=== PATIENT | female | born 1950 | race Caucasian/White ===

== ENCOUNTER 2025-01-09 13:01 | Emergency (ER) | payer MEDICARE, SELFPAY ==
[2025-01-09 13:10] VITALS: BP 115/67
[2025-01-09 13:29] LABS: % Basophils 0.8 % (0-2); % Eosinophils 2.1 % (0-6); % Immature Granulocytes 0.2 % (0-0.5); % Lymphocytes 15.5 % (20.5-51.1); % Monocytes 8.2 % (1.7-9.3); % Neutrophils 73.2 % (42.2-75.2); Absolute Basophils 0.1 10^3/uL (0-0.2); Absolute Eosinophils 0.2 10^3/uL (0-0.7); Absolute Lymphocytes 1.6 10^3/uL (1.2-3.4); Absolute Monocytes 0.8 10^3/uL (0.1-0.6); Absolute Neutrophils 7.4 10^3/uL (1.4-6.5); Hematocrit 39.7 % (37.0-47.0); Hemoglobin 13.4 g/dL (12.0-16.0); Mean Corp Hgb Conc. 33.8 g/dL (33.0-37.0); Mean Corpuscular Hgb 31.2 pg (27.0-31.0); Mean Corpuscular Volume 92.5 fL (81.0-99.0); Mean Platelet Volume 9.5 fL (7.4-10.4); Nucleated Red Blood Cells % 0 %; Platelet Count 183 10^3/uL (130-400); Red Blood Cell Count 4.29 10^6/uL (4.20-5.40); Red Cell Dist. Width 13.1 % (11.5-14.5); White Blood Cell Count 10.1 10^3/uL (4.8-10.8)
[2025-01-09 13:57] LABS: ALT (SGPT) 15 U/L (0-35); AST (SGOT) 23 U/L (14-36); Albumin 4.4 g/dl (3.5-5.0); Alkaline Phosphatase 49 U/L (38-126); Blood Urea Nitrogen 10 mg/dl (7-17); Calcium 9.2 mg/dl (8.4-10.2); Carbon Dioxide 24 mmol/L (22-30); Chloride 107 mmol/L (98-107); Glucose 102 mg/dl (70-99); Potassium 5.3 mmol/L (3.5-5.1); Sodium 136 mmol/L (135-145); Total Bilirubin 0.8 mg/dl (0.2-1.3); Total Protein 7.2 g/dl (6.3-8.2); eGFR > 60.00
--- NOTE | 2025-01-09 16:26 | ED.GENMED ---
History of Present Illness
General
Chief Complaint: Facial Problem
Source: patient
Exam Limitations: none
Time Seen by Provider: 01/09/25 15:55
Nursing documentation reviewed up to this point in time: agreed with
History of Present Illness
History of Present Illness:
The patient is a 74-year-old female presenting with swelling on the right side of the face, specifically the right side of chin and anterior lower jaw. The patient attributes the swelling to possibly biting the inside of the lip. The swelling began
approximately two days ago after she bit the inside of her cheek. The patient denies fever, chills, nausea, vomiting, or pain during swallowing. The pain is reported at a 5 out of 10 on the pain scale. There has been no drainage noted, and the
symptoms have remained constant without worsening.
Past History
Past History
ED Past Medical History: Hypercholesterolemia and Hypothyroidism
ED Past Surgical History: Gynecological and Orthopedic
Social History
Tobacco: Non-smoker
Alcohol: None
Personal:
Living: with family
Review of Systems
Review of Systems
Allergies reviewed?: Yes
All Other Systems: ROS reviewed and negative except as documented in HPI and ROS
Constitutional: Denies fever or chills
EENT: Reports mouth pain (swelling at site of bite inner right cheek)
Skin: Reports other (redness, local swelling lower right jaw/chin)
Phy Exam
Physical Exam
Physical Exam:
GENERAL: No acute distress. A&Ox3.
CONSTITUTIONAL: Afebrile.
EYES: clear, conjunctivae normal
ENMT: moist mucus membranes, Pharynx nl. No trismus. Tender, red,
RESPIRATORY: Regular respirations, nonlabored, lungs clear.
CARDIOVASCULAR: Regular rate and rhythm, no murmurs, no rubs.
GI: Soft, nontender, normal BS
MUSCULOSKELETAL: Moves with ease. Well perfused.
SKIN: Warm, dry, pink
PSYCH: Normal mood and affect. Well kept, interactive and appropriate
NEUROLOGIC: Awake, alert and oriented. No focal neurological deficits
Course
Orders/Labs/Results
Orders:
Orders
01/09/25 13:18
CBC/With Diff [Complete Blood Count/With Diff] Urgent
CMP [Comprehensive Metabolic Panel] Urgent
Abnormal Lab Results
01/09/25
13:18
MCH 31.2 H pg
(27.0-31.0)
Absolute Neuts (auto) 7.4 H 10^3/uL
(1.4-6.5)
Absolute Monos (auto) 0.8 H 10^3/uL
(0.1-0.6)
Lymphocytes % 15.5 L %
(20.5-51.1)
Potassium 5.3 H mmol/L
(3.5-5.1)
Glucose 102 H mg/dl
(70-99)
01/09/25 13:18
01/09/25 13:18
Vital Signs
Initial and Last Documented VS:
Initial Vital Signs
Pulse Resp BP Pulse Ox
70 18 115/67 98
01/09/25 13:10 01/09/25 13:10 01/09/25 13:10 01/09/25 13:10
Last Documented Vital Signs
Pulse Resp BP Pulse Ox
70 18 115/67 98
01/09/25 13:10 01/09/25 13:10 01/09/25 13:10 01/09/25 16:27
MDM/Problems Addressed
Differential Diagnosis Includes:
The Differential Diagnosis includes, in no particular order and is not limited to:
1. Traumatic injury to the lip/cheek mucosa
2. Dental abscess
3. Salivary gland infection
4. Cellulitis
MDM/Problems Addressed:
The patient is a 74-year-old female presenting with swelling on the right side of the face, specifically the right side of chin and anterior lower jaw. The patient attributes the swelling to possibly biting the inside of the lip. The swelling began
approximately two days ago after she bit the inside of her cheek. The patient denies fever, chills, nausea, vomiting, or pain during swallowing. The pain is reported at a 5 out of 10 on the pain scale. There has been no drainage noted, and the
symptoms have remained constant without worsening.
Cellulitis is mild
CBC, CMP normal
Plan:
Prescribe an antibiotic, to be sent to the patients pharmacy. Recommend continuation of ibuprofen or acetaminophen for pain management. Advise rinsing with a solution of hydrogen peroxide and water, two to three times daily x 3 days. Instruct the
patient to return if symptoms worsen, (PCP in [place], staying here for summer), otherwise follow up with the primary care physician.
*Pulse Oximetry
SaO2: 98
Oxygen Mode of Delivery: Room air
Patient hypoxic: not evaluated
*Critical Care Note
Total Time (30-74mins, 75-104mins- exclusive of procedures): Not Applicable
ED Attending Note
-
Portions of this chart may have been created with voice recognition software.� Occasional wrong word or��sound alike� substitutions may have occurred due to the inherent limitations of voice recognition software.
Discharge Plan
Departure
Patient Disposition: Home (Routine Discharge)
Date of Disposition: 01/09/25
Time of Disposition: 16:21
Patient with high blood pressure during this ER visit?: No
Condition: Good
Discharge Problem:
Cellulitis of face
Instructions: Cellulitis (Skin Infection), Adult (DC), Wound Inside The Mouth
Prescriptions:
New
amoxicillin 500 mg capsule
500 mg PO TID Qty: 30 0RF
Activity Restrictions/Additional Instructions:
As we discussed, I sent a prescription to your pharmacy for amoxicillin to take 500 mg 3 times a day for 10 days.
Return here immediately for increasing swelling, pain, fever or feeling sicker in any way.
Interventions
Interventions:
*Risk Screen - Suicide Last Done: 01/09/25 13:10
*General Assessment Last Done: 01/09/25 13:10
*Neglect/Abuse Screening Last Done: 01/09/25 13:10
*ED- Fall Risk Assessment Last Done: 01/09/25 16:44
*ED COVID-19 Vaccine History Last Done: 01/09/25 16:44
*Nursing Disposition Last Done: 01/09/25 16:50
ED- Neurological Assessment Last Done: 01/09/25 16:44
ED-Skin Assessment Last Done: 01/09/25 16:47
Discharge Date and Time
Discharge Date/Time: 01/09/25 16:57
Print Language: [id number]
== END 2025-01-09 16:57 | disposition home or self-care (01) ==
LOC: EMR 13:01
PROVIDERS: Emergency Medicine; EMERGENCY PHYSICIAN Emergency Medicine
DX: L03.211 Cellulitis of face (principal)
CPT/HCPCS: 99283; 80053; 85025

== ENCOUNTER 2025-01-19 08:17 | Emergency (ER) | payer MEDICARE, SELFPAY ==
[2025-01-19 08:20] VITALS: BP 143/77
--- NOTE | 2025-01-19 08:59 | ED.SKININJ ---
HPI-Injury
General
Chief Complaint: Skin Problem
Source: patient
Exam Limitations: none
Time Seen by Provider: 01/19/25 08:49
History of Present Illness-Injury
Initial Injury comments:
74-year-old female presents for reevaluation. She was here last week for cellulitis of the right side of the face. She was prescribed amoxicillin and noticed improvement initially she is just about to finish her antibiotics today when she noticed
slightly more swelling. She denies fevers no significant pain. She denies any drainage. No neck swelling. Healthy otherwise. She is inquiring about potentially lengthening her antibiotics.
Past History
Past History
ED Past Medical History: Hypercholesterolemia and Hypothyroidism
ED Past Surgical History: Gynecological and Orthopedic
Social History
Tobacco: Non-smoker
Alcohol: None
Personal:
Living: with family
Phy Exam
Physical Exam
Physical Exam:
General: Well-appearing female no acute respiratory distress
HEENT: Normocephalic atraumatic
Skin: Subtle erythema and induration noted to the right side of the chin. There is a firm area felt within the skin between the buccal tissue and the chin. The dentition appears well. No adenopathy. No trismus or drooling
Heart: Regular rate and rhythm
Lungs: Clear no wheeze
Course
Vital Signs
Initial and Last Documented VS:
Initial Vital Signs
Temp Pulse Resp BP Pulse Ox
97.9 F 66 18 143/77 97
01/19/25 08:20 01/19/25 08:20 01/19/25 08:20 01/19/25 08:20 01/19/25 08:20
Last Documented Vital Signs
Temp Pulse Resp BP Pulse Ox
97.9 F 66 18 143/77 97
01/19/25 08:20 01/19/25 08:20 01/19/25 08:20 01/19/25 08:20 01/19/25 08:20
MDM/Problems Addressed
Differential Diagnosis Includes:
Persistent and perhaps slightly worsening inflammation/cellulitis of the right side of the face near the chin. No fluctuance to suggest abscess or fluid collection. No respiratory distress. Patient wore interested in extending her antibiotics.
At this point will prescribe Augmentin for another week. Return precautions were given. Consider CT but held off at this time.
*Pulse Oximetry
SaO2: 97
Oxygen Mode of Delivery: Room air
Patient hypoxic: no
*Critical Care Note
Total Time (30-74mins, 75-104mins- exclusive of procedures): Not Applicable
ED Attending Note
-
Portions of this chart may have been created with voice recognition software.� Occasional wrong word or��sound alike� substitutions may have occurred due to the inherent limitations of voice recognition software.
Discharge Plan
Departure
Patient Disposition: Home (Routine Discharge)
Date of Disposition: 01/19/25
Time of Disposition: 09:02
Patient with high blood pressure during this ER visit?: No
Discharge Problem:
Cellulitis
Instructions: Cellulitis (Skin Infection), Adult (DC)
Prescriptions:
New
amoxicillin-pot clavulanate 875-125 mg tablet
1 tab PO BID Qty: 14 0RF
No Action
amoxicillin 500 mg capsule
500 mg PO TID Qty: 30 0RF
Activity Restrictions/Additional Instructions:
Continue with Augmentin. Continue with warm compresses. Return if worse otherwise follow-up with your doctor
Interventions
Interventions:
*Risk Screen - Suicide Last Done: 01/19/25 08:20
*Neglect/Abuse Screening Last Done: 01/19/25 08:20
Discharge Date and Time
Print Language: [id number]
== END 2025-01-19 09:23 | disposition home or self-care (01) ==
LOC: EMR 08:17
PROVIDERS: EMERGENCY PHYSICIAN Emergency Medicine
DX: L03.211 Cellulitis of face (principal); E03.9 Hypothyroidism, unspecified; E78.00 Pure hypercholesterolemia, unspecified
CPT/HCPCS: 99283